=== PATIENT | male | born 1965 | race Caucasian/White ===

== ENCOUNTER 2017-03-03 20:07 | Day surgery (SDC) | payer BC ==
--- NOTE | 2017-03-03 20:34 | EDPHY ---
H & P Stated Complaint: colonoscopy yesterday, rectal bleeding Time Seen by Provider: 03/03/17 20:27 HPI/ROS: CHIEF COMPLAINT: Rectal bleeding, colonoscopy yesterday HISTORY OF PRESENT ILLNESS: The patient is a 51 y/o male 1 day post-op from a colonoscopy complaining of rectal bleeding, onset 3.[address] Rodriguez, diamond die driller, removed 2 small polyps and 1 large polyp. He had a bowel movement this morning with out any problems. 3.5 hours ago he thought he was passing gas when he felt wet and noticed there was blood. He has not had a bowel movement since then. Denies dizziness, vomiting, paresthesias or other pertinent symptoms. REVIEW OF SYSTEMS: A comprehensive 10 point review of systems is otherwise negative aside from elements mentioned in the history of present illness. PMH: Hypertension, hypercholesteremia, GERD SOCIAL HISTORY: Non-smoker, no alcohol or recreational drugs PHYSICAL EXAM: Gen: Awake, Alert, No Distress HEENT: Nose: no rhinorrhea Eyes: PERRLA, EOMI Mouth: Moist mucosa Neck: Supple, no JVD Chest: nontender, lungs clear to auscultation Heart: S1, S2 normal, no murmur Abd: Soft, non-tender, no guarding Back: no CVA tenderness, no midline tenderness Ext: no edema, non-tender Skin: no rash Neuro: CN II-XII intact, Sensation grossly intact, Strength 5/5 in bilateral upper and lower extremities - Personal History Current Tetanus Diphtheria and Acellular Pertussis (TDAP): Yes - Medical/Surgical History Hx Asthma: No Hx Chronic Respiratory Disease: No Hx Diabetes: No Hx Cardiac Disease: No Hx Renal Disease: No Hx Cirrhosis: No Hx Alcoholism: No Hx HIV/AIDS: No Hx Splenectomy or Spleen Trauma: No Other PMH: hyperlipids - Social History Smoking Status: Never smoked Constitutional: Initial Vital Signs Temperature (C) 36.7 C 03/03/17 20:13 Heart Rate 74 03/03/17 20:13 Respiratory Rate 16 03/03/17 20:13 Blood Pressure 130/81 H 03/03/17 20:13 O2 Sat (%) 96 03/03/17 20:13 O2 Delivery Mode Room Air Allergies/Adverse Reactions: No Known Allergies Allergy (Unverified 03/17/14 15:39) Home Medications: Medication Instructions Recorded Prevacid 03/17/14 Lipitor 03/03/17 Lisinopril 03/03/17 Medical Decision Making ED Course/Re-evaluation: The patient is a 51 y/o male presenting with rectal bleeding for 3.5 hours, 1 day post-op from a colonoscopy. He had a polyp removed from his rectum with increased bleeding today. 2026: Consulted with Dr. Rodriguez, diamond die driller, who saw the patient yesterday for the colonoscopy. Dr. Rodriguez is requesting a single fleet enema now. Patient to go to sigmoidoscopy under Dr. Rodriguez. - Data Points Laboratory Results: Laboratory Results 03/03/17 20:39 03/03/17 20:39 WBC 7.03 10^3/uL 10^3/uL (3.80-9.50) RBC 4.89 10^6/uL 10^6/uL (4.40-6.38) Hgb 15.1 g/dL g/dL (13.7-17.5) Hct 43.2 % % (40.0-51.0) MCV 88.3 fL fL (81.5-99.8) MCH 30.9 pg pg (27.9-34.1) MCHC 35.0 g/dL g/dL (32.4-36.7) RDW 13.2 % % (11.5-15.2) Plt Count 304 10^3/uL 10^3/uL (150-400) MPV 9.3 fL fL (8.7-11.7) Neut % (Auto) 54.6 % % (39.3-74.2) Lymph % (Auto) 33.1 % % (15.0-45.0) [place] % (Auto) 8.5 % % (4.5-13.0) Eos % (Auto) 2.4 % % (0.6-7.6) Baso % (Auto) 1.1 % % (0.3-1.7) Nucleat RBC Rel Count 0.0 % % (0.0-0.2) Absolute Neuts (auto) 3.83 10^3/uL 10^3/uL (1.70-6.50) Absolute Lymphs (auto) 2.33 10^3/uL 10^3/uL (1.00-3.00) Absolute Monos (auto) 0.60 10^3/uL 10^3/uL (0.30-0.80) Absolute Eos (auto) 0.17 10^3/uL 10^3/uL (0.03-0.40) Absolute Basos (auto) 0.08 10^3/uL 10^3/uL (0.02-0.10) Absolute Nucleated RBC 0.00 10^3/uL 10^3/uL (0-0.01) Immature Gran % 0.3 % % (0.0-1.1) Immature Gran # 0.02 10^3/uL 10^3/uL (0.00-0.10) Departure - Departure Disposition: To OP Cath/Surgery Clinical Impression: Rectal bleeding Condition: Good Report Scribed for: Domo Whiteside Report Scribed by: Rachel Arriaza Date of Report: 03/03/17 Time of Report: 20:27
[2017-03-03 20:42] LABS: % IMMATURE GRANULYOCYTES 0.3 % (0.0-1.1); ABSOLUTE IMMATURE GRANULOCYTES 0.02 10^3/uL (0.00-0.10); ADD DIFF? NO; ADD MORPH? NO; ADD SCAN? NO; ATYPICAL LYMPHOCYTE FLAG 0 (0-99); FRAGMENT RBC FLAG 0 (0-99); HEMATOCRIT 43.2 % (40.0-51.0); HEMOGLOBIN 15.1 g/dL (13.7-17.5); LEFT SHIFT FLG 0 (0-99); LIPEMIA HEMOLYSIS FLAG 90 (0-99); MEAN CELL HEMOGLOBIN 30.9 pg (27.9-34.1); MEAN CELL VOLUME 88.3 fL (81.5-99.8); MEAN PLATELET VOLUME 9.3 fL (8.7-11.7); PLATELET CLUMPS FLAG 0 (0-99); PLATELET COUNT 304 10^3/uL (150-400); RED BLOOD CELL COUNT 4.89 10^6/uL (4.40-6.38); RED CELL DISTRIBUTION WIDTH 13.2 % (11.5-15.2)
[2017-03-03 21:14] VITALS: PULSE 70; O2SAT 97
[2017-03-03] MEDS ORDERED: MIDAZOLAM 2 MG/2 ML VIAL ONE ×2 (21:34→21:38)
[2017-03-03] MEDS ORDERED: fentaNYL 100 MCG/2 ML INJ ONE (21:38)
--- NOTE | 2017-03-03 22:05 | PDPROPOC ---
Sedation Plan of Care Sedation Plan of Care: vital signs stable ASA Classification: ASA 1 Planned drugs: fentanyl, midazolam Mallampati Score: Class 1 Mallampati Reference Image: Patient passed 3-3-2 rule?: Yes
--- NOTE | 2017-03-03 22:05 | PDHPUP ---
History & Physical Update H&P update statement: This history and physical update is based on an assessment of the patient which was completed after admission or registration (within 24 hours), but prior to the surgery/procedure. H&P update: H&P reviewed & patient examined, no change in patient's condition since H&P completed
--- NOTE | 2017-03-03 22:11 | GIREPORT ---
[facility] Surgical Services - Endoscopy Department Patient Name: Parviz Vora Procedure Date: 03/03/2017 9:28 PM Patient Type: Outpatient Attending MD/ ER Physician: Ilir Rodriguez MD Procedure: Flexible Sigmoidoscopy Indications: Treatment of bleeding from polypectomy site Providers: Ilir Rodriguez MD Medicines: Midazolam 4 mg IV Complications: No immediate complications. Description of Procedure: After obtaining informed consent, the endoscope was passed under direct vision. Throughout the procedure, the patient's blood pressure, pulse, and oxygen saturations were monitored continuous ly. The Endoscope was introduced through the anus and advanced to the rectosigmoid junction. The fle xible sigmoidoscopy was accomplished with ease. The patient tolerated the procedure well. The quality of the bowel preparation was good. Findings: The perianal and digital rectal examinations were normal. Active bleeding was seen in the recto-sigmoid colon, secondary to previous polypectomy procedure . To stop active bleeding, one hemostatic clip was successfully placed. There was no bleeding at the end of the procedure. Estimated Blood Loss: Estimated blood loss: none. Post Op Diagnosis: - Bleeding in the recto-sigmoid colon secondary to previous polypectomy . Clip was placed. - No specimens collected. Recommendation: - Continue present medications. - Discharge patient to home (ambulatory). Attending Participation: I personally performed the entire procedure. Ilir Rodriguez MD Ilir Rodriguez MD 03/03/2017 10:11:06 PM Number of Addenda: 0 Note Initiated On: 03/03/2017 9:28 PM [email or web address]
[2017-03-03 22:19] VITALS: TEMP 97.7
[2017-03-03 22:20] VITALS: BP 110/61; RESP 18
== END 2017-03-03 22:33 | disposition home or self-care (01) ==
LOC: FSGY 21:17
PROVIDERS: ATTEND Internal Medicine Gastroenterology
PROC: 0W3P8ZZ Control Bleeding in Gastrointestinal Tract, Via Natural or Artificial Opening Endoscopic (ICD-10-PCS; principal; 2017-03-03 21:30)
DX: K62.5 Hemorrhage of anus and rectum (principal); K91.840 Postprocedural hemorrhage of a digestive system organ or structure following a digestive system procedure; I10 Essential (primary) hypertension; E78.5 Hyperlipidemia, unspecified; K21.9 Gastro-esophageal reflux disease without esophagitis
CPT/HCPCS: J2250; J3010